=== PATIENT | female | born 1995 ===

== ENCOUNTER 2022-05-21 13:49 | Outpatient (CLI) | payer OTHER ==
[~2022-05-21] VITALS: Ht 160 cm; Wt 69.7 kg
[2022-05-21] MEDS ORDERED: IRON1TAB2 PO (15:43)
== END 2022-05-21 17:14 | disposition home or self-care (01) ==
LOC: M LDO 13:49
PROVIDERS: ATTEND Advanced Practice Midwife
DX: O47.1 False labor at or after 37 completed weeks of gestation (principal); Z3A.38 38 weeks gestation of pregnancy
CPT/HCPCS: 59025; G0378; G0463

== ENCOUNTER 2022-05-21 23:08 | Inpatient (IN) | payer OTHER ==
[~2022-05-21] VITALS: Ht 160 cm; Wt 69.5 kg
[~2022-05-21 23:08] MED LIST: IRON1TAB2 PO
[2022-05-21] MEDS ORDERED: HOME MED LIST COMPLETE! XX SCH (23:25)
[2022-05-21 23:29] VITALS: BP 123/76
[2022-05-22] VITALS (35 sets, daily range): BP systolic 104–160; BP diastolic 57–103
[2022-05-22] MEDS ORDERED: LIDOCAINE 1% MDV 20ML VIAL INFIL PRN (00:05)
[2022-05-22] MEDS ORDERED: CARBOPROST TROMETHAMINE 250 MCG/ML AMP IM PRN (00:05)
[2022-05-22] MEDS ORDERED: OXYTOCIN INJ 10UNITS/ML 1ML VIAL IV PRN (00:05)
[2022-05-22] MEDS ORDERED: LR 1,000 ML IV SCH ×2 (00:05)
[2022-05-22] MEDS ORDERED: OXYTOCIN DRIP 30 UNITS in IV 1 EA IV SCH ×2 (00:05→10:20)
[2022-05-22] MEDS ORDERED: OXYTOCIN DRIP 30 UNITS in IV 1 EA IV PRN ×6 (00:05)
[2022-05-22] MEDS ORDERED: LACTATED RINGER'S 1000 ML IV STA (00:05)
[2022-05-22] MEDS ORDERED: OXYTOCIN INJ 10UNITS/ML 1ML VIAL IM PRN (00:05)
[2022-05-22] MEDS ORDERED: TRANEXAMIC ACID INJection 1,000 MG in NS 100 ML IV PRN (00:05)
[2022-05-22] MEDS ORDERED: METHYLERGONOVINE MALEATE 0.2 MG/ML VIAL (J2210) IM PRN ×2 (00:05→10:20)
[2022-05-22 00:32] LABS: HEMATOCRIT 39.8 % (36.0-47.0); HEMOGLOBIN 12.6 g/dl (12.0-15.5); MEAN CORPUSCULAR HEMOGLOBIN 26.4 pg (27.0-33.0); MEAN CORPUSCULAR HGB CONC 31.7 g/dl (32.0-36.5); MEAN CORPUSCULAR VOLUME 83.3 fl (80.0-96.0); PLATELET COUNT, AUTOMATED 105 10^3/uL (150-450); RED BLOOD COUNT 4.78 10^6/uL (4.00-5.40); WHITE BLOOD COUNT 8.9 10^3/uL (4.0-10.0)
[2022-05-22] MEDS ORDERED: FENTANYL/ROPIVACAINE/NACL BAG 100 ML EPIDURAL SCH (01:15)
[2022-05-22] MEDS ORDERED: LR 500 ML IV PRN (01:15)
[2022-05-22] MEDS ORDERED: NALOXONE INJ 0.4MG/1ML VIAL IV PRN (01:15)
[2022-05-22] MEDS ORDERED: ePHEDrine SULFATE 25 MG/5 ML(5MG/ML) SYRINGE IVP PRN (01:15)
[2022-05-22] MEDS ORDERED: diphenhydrAMINE 50MG/ML VIAL IV PRN (01:15)
[2022-05-22] MEDS ORDERED: EPIDURAL/PCA KEYS XX PRN (01:15)
[2022-05-22] MEDS ORDERED: ONDANSETRON 4MG 2ML VIAL IV PRN ×2 (01:15→10:20)
[2022-05-22] MEDS: PRENATAL VITAMINS CHEWABLE TABLET PO SCH (09:00)
[2022-05-22 10:09] LABS: CORD GAS ABE A -16.2; CORD GAS ABE V -8.1; CORD GAS HCO3 A 18.8 MEQ/L; CORD GAS HCO3 V 18.3 MEQ/L; CORD GAS O2 SAT A 20.4 %; CORD GAS O2 SAT V 65.1 %; CORD GAS PCO2 A 93.6 mmHg; CORD GAS PCO2 V 40.7 mmHg; CORD GAS PH V 7.27 UNITS; CORD GAS PO2 A 17.9 mmHg; CORD GAS PO2 V 27.8 mmHg; CORD GAS SBC A 11.2 MEQ/L; CORD GAS SBC V 17.3 MEQ/L; CORD GAS TCO2 A 21.7 MEQ/L; CORD GAS TCO2 V 19.5 MEQ/L
[2022-05-22 10:10] LABS: CORD GAS PH A 6.921 UNITS
[2022-05-22] MEDS ORDERED: RHOGAM 300 MCG (1500 IU) INJ (J2790) IM SCH (10:20)
[2022-05-22] MEDS: LR 1,000 ML IV SCH ×2 (10:20→18:20)
[2022-05-22] MEDS ORDERED: METOCLOPRAMIDE INJ 10MG/2ML VIAL IV PRN (10:20)
[2022-05-22] MEDS ORDERED: DOCUSATE SODIUM 100MG CAPSULE PO PRN (10:20)
[2022-05-22] MEDS ORDERED: DIBUCAINE 1% OINTMENT 30GM TOP PRN (10:20)
[2022-05-22] MEDS: ACETAMINOPHEN 500 MG TAB PO SCH ×2 (12:00→17:45)
[2022-05-22] MEDS: IBUPROFEN 800 MG TAB PO SCH ×2 (13:45→22:39)
[2022-05-23 06:00] VITALS: BP 123/66
[2022-05-23] MEDS: ACETAMINOPHEN 500 MG TAB PO SCH ×4 (06:05→18:00)
[2022-05-23] MEDS: IBUPROFEN 800 MG TAB PO SCH ×3 (07:24→22:00)
[2022-05-23 08:00] LABS: HEMATOCRIT 34.3 % (36.0-47.0); MEAN CORPUSCULAR HEMOGLOBIN 25.9 pg (27.0-33.0); MEAN CORPUSCULAR HGB CONC 30.6 g/dl (32.0-36.5); MEAN CORPUSCULAR VOLUME 84.5 fl (80.0-96.0); RED BLOOD COUNT 4.06 10^6/uL (4.00-5.40); WHITE BLOOD COUNT 7.8 10^3/uL (4.0-10.0)
[2022-05-23 08:51] LABS: HEMOGLOBIN 10.5 g/dl (12.0-15.5); PLATELET COUNT, AUTOMATED 70 10^3/uL (150-450)
[2022-05-23] MEDS: PRENATAL VITAMINS CHEWABLE TABLET PO SCH (08:54)
[2022-05-23 18:00] VITALS: BP 114/67
[2022-05-24 05:36] VITALS: BP 112/67
[2022-05-24] MEDS: ACETAMINOPHEN 500 MG TAB PO SCH ×2 (06:07)
[2022-05-24] MEDS: IBUPROFEN 800 MG TAB PO SCH (06:08)
[2022-05-24] MEDS ORDERED: MEASLES,MUMPS,RUBELLA VACCINE INJ (MMR-II) (90707) SC.IMMUN ONE (09:00)
[2022-05-24] MEDS: PRENATAL VITAMINS CHEWABLE TABLET PO SCH (09:01)
[2022-05-24] MEDS ORDERED: COLA100C5 PO (11:34)
[2022-05-24] MEDS ORDERED: PRENCHW PO (11:34)
[2022-05-24] MEDS ORDERED: IBUP80TA PO (11:34)
[2022-05-24] MEDS ORDERED: ACET-683 PO (11:34)
== END 2022-05-24 12:55 | disposition home or self-care (01) | DRG 807 ==
LOC: M LDO 23:08 → M LDI 23:38 → M OBS 05-22 12:45
PROVIDERS: ADMIT Obstetrics & Gynecology; ATTEND Obstetrics & Gynecology
PROC: 10E0XZZ Delivery of Products of Conception, External Approach (ICD-10-PCS; principal; 2022-05-22)
PROC: 10907ZC Drainage of Amniotic Fluid, Therapeutic from Products of Conception, Via Natural or Artificial Opening (ICD-10-PCS; 2022-05-22)
DX: O69.81X0 Labor and delivery complicated by cord around neck, without compression, not applicable or unspecified (principal); Z37.0 Single live birth; Z3A.39 39 weeks gestation of pregnancy; O77.0 Labor and delivery complicated by meconium in amniotic fluid